=== PATIENT | female | born 1985 | race Asian ===

== ENCOUNTER → 2025-06-13 | Day surgery (SDC) | payer BC ==
[~2025-06-13] MED LIST: ASTEPRO AL205.5 MCG/; B12 ACTIVE1000 MCG PO; CALCIUM CARBON500 MG PO; CETIRIZINE HCL10 M1 PO; LIDOCAINE HCL 2% LOCAL INJ 5 ML SDV VIAL INJ ONE; PROPOFOL IV EMULSION 10 MG/ML 20 ML VIAL ONE; VITAMIN D3 COM1 EACH PO; XYZAL5 MG PO
[2025-06-13] MEDS: LACTATED RINGER'S 1,000 ML ONE (06:06)
[2025-06-13 08:05] VITALS: BP 130/81; PULSE 76; RESP 16; O2SAT 99
== END | disposition home or self-care (01) ==
LOC: OR 05:33
PROVIDERS: ATTEND Internal Medicine Gastroenterology
DX: K92.1 Melena (principal); K60.30 Anal fistula, unspecified; K64.8 Other hemorrhoids; Z88.2 Allergy status to sulfonamides; Z91.040 Latex allergy status; Z68.26 Body mass index [BMI] 26.0-26.9, adult
CPT/HCPCS: 45378; 81025; J2003; J2704; J7121